=== PATIENT | female | born 1980 | race Caucasian/White ===

== ENCOUNTER → 2018-12-12 10:42 | Outpatient (CLI) | payer OTHER, MEDICAID, SELFPAY ==
--- NOTE | 2018-12-12 | DI.US.S_ITS ---
PROCEDURE: US OB >= 14 WEEKS FETUS INDICATIONS: ANATOMY SCAN OUTSIDE/PRIOR DATING DATA: Last menstrual period (LMP): 07/30/18. LMP-based estimated date of delivery (AMADA): 05/06/19. First dating scan (date and location): 12/12/18. Estimated date of delivery (AMADA) from first dating scan: 05/06/19. TECHNIQUE: Real-time scanning was performed of the fetus, with image documentation and biometric measurements. COMPARISON: None. FINDINGS: General: A single living intrauterine gestation is present. Presentation: Breech Placenta: Placental position is fundal, without previa. Amniotic fluid index: 14.3 cm, normal range is 5-24 cm. heart rate: 149 beats per minute. Maternal cervical canal: 3.4 cm long. Normal lower limit is 2.5 cm. biometrics: Biparietal diameter: 4.2 cm, 18 weeks 5 days Head circumference: 16.1 cm, 18 weeks and 6 days Abdominal circumference: 14.5 cm, 19 weeks 6 days Femur length: 2.8 cm, 19 weeks 1 day Estimated gestational age from initial scan: 19 weeks 2 days Composite gestational age from present scan: 19 weeks 2 days Estimated weight and percentile: 311 grams, 73rd percentile Measurement variability for biometric dating: +/- 7 days from 14 weeks to 15 weeks 6 days gestation, +/- 10 days from 16 weeks to 21 weeks 6 days gestation, +/- 2 weeks from 22 weeks to 27 weeks 6 days gestation, +/- 3 weeks for 28 weeks gestation or later. weight reference: 4500 g or EFW >90/95% is considered macrosomia or large for gestational age. EFW <10% is small for gestational age. EFW 5% or less is considered intra-uterine growth restriction. Anatomic survey: Neuro: Ventricles are non-dilated at less than 10 mm. Cisterna magna is normal at 3-11 mm. Cerebellum is normal in size and morphology. Nuchal skin fold: Normal at less than 6 mm between 14-21 weeks gestational age. Face: Nose and lips, facial profile are normal. Spine: No evidence for spina bifida. Heart: 4-chambered heart is present. No definite abnormalities identified with suboptimal visualization. Diaphragm: Diaphragm is intact. Stomach: Left-sided stomach is present. Kidneys: No hydronephrosis. Normal is less than 5 mm in 2nd trimester, less than 7 mm in 3rd trimester. Cord: 3-vessel cord has orthotopic insertion. Bladder: Normal in size. Extremities: All 4 extremities identified. IMPRESSION: 1. Single living intrauterine with composite gestational age of 19 weeks 2 days concordant with patient's dates by LMP. 2. No definite abnormalities identified on anatomic survey with suboptimal visualization of the cardiac structures. Dictated by: Rick Chu M.D. on 12/12/2018 at 16:06 Approved by: Rick Chu M.D. on 12/12/2018 at 16:20
== END ==
PROVIDERS: PCP Family Medicine Geriatric Medicine; Visit Provider Midwife
DX: Z36.89 Encounter for other specified antenatal screening (principal); Z3A.19 19 weeks gestation of pregnancy
CPT/HCPCS: 76811

== ENCOUNTER → 2019-02-06 10:04 | Outpatient (CLI) | payer OTHER, MEDICAID, SELFPAY ==
--- NOTE | 2019-02-06 | DI.US.S_ITS ---
PROCEDURE: US OB FOLLOW UP INDICATIONS: FOLLOW CARDIAC SUB-VISUALIZATION OUTSIDE/PRIOR DATING DATA: Last menstrual period (LMP): 07/30/18. LMP-based estimated date of delivery (AMADA): 05/06/19. First dating scan (date and location): 12/12/18. Estimated date of delivery (AMADA) from first dating scan: 05/06/19. TECHNIQUE: Real-time scanning was performed of the fetus, with image documentation. Endovaginal scanning: Not performed COMPARISON: None. FINDINGS: A single living intrauterine gestation is present. Presentation: Vertex Placenta: Placental position is posterior fundal, without previa. Amniotic fluid index: 15.1 cm, normal range is 5-24 cm. heart rate: 152 beats per minute. Maternal cervical canal: 3.4 cm long. Normal lower limit is 2.5 cm. Estimated gestational age from initial scan: 27 week 2 days. On the current study, cardiac structures are well visualized and appears within normal limits. IMPRESSION: 1. Single live intrauterine with fetus in vertex presentation. heart rate is 150 cubic centimeters. 2. cardiac structures are well-visualized on the current study and appears within normal limits. Dictated by: Kelton Blunt M.D. on 02/06/2019 at 12:35 Approved by: Kelton Blunt M.D. on 02/06/2019 at 12:37
== END ==
PROVIDERS: PCP Family Medicine Geriatric Medicine; Visit Provider Midwife
DX: Z36.2 Encounter for other antenatal screening follow-up (principal); Z3A.27 27 weeks gestation of pregnancy
CPT/HCPCS: 76816